=== PATIENT | female | born 1945 | race Caucasian/White ===

== ENCOUNTER → 2020-06-28 | Outpatient (CLI) | payer MEDICARE, OTHER ==
--- NOTE | 2020-06-28 16:29 | RAD ---
ADDENDUM #1 Addendum: Pathology results indicate invasive ductal carcinoma, histologic grade 2. This is a malignant concord ant result. Recommend medical oncologic and surgical consultation. Electronically signed by: Kecia Gill MD (07/02/2020 2:15 PM) [id number] ORIGINAL REPORT Examination: 1. Ultrasound-guided left breast biopsy. 2. Left postprocedure mammogram. INDICATION: 74-year-old woman status post previous left breast malignant lumpectomy recalled from [facility] for developing asymmetry in the upper outer left breast and subsequently recommended for imagi ng guided biopsy. COMPARISON: Screening mammogram of 02/12/2020, left diagnostic mammogram of 06/13/2020 and left breast ultrasound of that same date. TECHNIQUE AND FINDINGS: Informed consent was obtained and an appropriate procedural pause observed. We briefly discussed the possible presence of a second lesion of suspicion for malignancy in close proximity to the biopsy tar get that likely would not ultimately significantly impact the patient's future treatment options but could be pursued with MRI if clinically warranted. During preprocedural sonographic survey of the biopsy target at the 3:00 position 5 cm from the nippl e, I was able to identify the sonographic correlate to the second area of suspicion that was the seco nd focal asymmetry recalled from screening It represented a 4 mm mass midway between the biopsy targ et at the 3:00 position 5 cm from the nipple and the faintly visible patient's surgical scar at the s kin surface in the upper outer left breast, best seen when the ultrasound probe is oriented in the ra dial orientation with the surgical scar at the far end of the probe. This mass was imaged for referen ce on image 5 of this exam but was not targeted for biopsy as it likely would not management. It is 1 .5 cm from the biopsy target. Using standard sterile technique, ultrasound guidance and local anesthesia, two 14-gauge core biopsy samples of the 1.4 cm mass in the left 3:00 position 5 cm from the nipple were obtained and placed in formalin. An S-shaped biopsy marker was deployed in the mass under ultrasound guidance and hemostasi s assured with direct breast compression for several minutes. Puncture site was dressed and postproce dure mammogram was obtained. Post procedure mammogram in the CC and true lateral projections showed satisfactory deployment of the S-shaped biopsy marker at the mass with no postbiopsy hematoma. Postprocedure instructions were provided and patient discharged in stable condition to follow up with her referring physician. IMPRESSION: Ultrasound-guided left breast core needle biopsy with satisfactory S-shaped biopsy marker deployment on post procedure mammogram. No apparent complications. Pathology results are pending. An addendum wi ll be issued once pathology results become available. Electronically signed by: Kecia Gill MD (06/28/2020 4:27 PM) [id number]
--- NOTE | 2020-07-02 14:20 | PATHOLOGY ---
[facility] Accession Number: [id number] . 01 Material submitted: . breast - LEFT BREAST TISSUE. Modifiers: left . 01 Clinical history: . LEFT BREAST MASS 300 5 CM FN LEFT BREAST BIOPSY . 02 Diagnosis: Breast tissue, left breast mass 3:00 needle biopsies: - INVASIVE DUCTAL CARCINOMA, HISTOLOGIC GRADE 2. SEE COMMENT. (JPM:praneeth; 07/01/2020) S 07/01/2020 1717 Local . 02 Comment: Sections of the left breast mass at 3:00 needle biopsy reveal an invasive mammary carcinoma. The tumor cells are present in small and larger irregular nests which infiltrate a reactive desmoplastic stroma. The tumor shows little tubule formation. Tumor cells show moderate nuclear pleomorphism. Mitotic figures and focal apoptosis are focally present. The invasive carcinoma measures up to 1.4 cm in greatest dimension on the glass slide. There is no lymphovascular tumor invasion. There are no tumor associated calcifications. The morphologic findings are supportive of the diagnosis of an invasive ductal carcinoma, histologic grade 2. Breast prognostic studies will be obtained, the results of which will be reported separately. The case is also examined by Dr. Velez, who concurs with the diagnosis. (JPM:praneeth; 07/01/2020) . 02 Electronically signed: . Clayton Reza MD, Pathologist NPI- [id number] . 01 Gross description: . Received in formalin labeled "Sister Kailee Morales, Lt Breast 300 5 cm FN" are 2 cylindrical edwards-yellow soft tissue cores measuring in aggregate 2.1 x 0.4 x 0.2 cm. The specimen is submitted entirely in cassettes A1-A2. The specimen is removed from the patient at 1108 and placed in formalin at 1109 on 06/28/2020. The specimen is removed from formalin at 2150 on 06/28/2020. [place] [place] 06/28/2020[place] [facility] 06/28/2020 1757 [facility] . 02 Pathologist provided ICD-10: C50.912 . 02 CPT . 687955 Specimen Comment: A courtesy copy of this report has been sent to [phone], [phone] Specimen Comment: [id number] Specimen Comment: Report sent to / DR PATTON Performed at: 01 [facility] [address], [place] [id number] MD Andry Palmer MD Phone: [phone] Performed at: 02 [facility] [address], [place] [id number] MD Clayton Reza MD Phone: [phone]
== END | disposition home or self-care (01) ==
LOC: US 10:21
PROVIDERS: ATTEND Family Medicine
DX: N63.21 Unspecified lump in the left breast, upper outer quadrant (principal); R92.8 Other abnormal and inconclusive findings on diagnostic imaging of breast; Z79.899 Other long term (current) drug therapy
CPT/HCPCS: 19083; 77065; 88305; 88361; C1713; 76942